=== PATIENT | female | born 1965 | race Caucasian/White ===

== ENCOUNTER 2016-08-05 11:43 | Day surgery (SDC) | payer OTHER ==
[2016-08-05] MEDS ORDERED: LACTATED RINGERS 1,000 ML ONE (11:47)
[2016-08-05] MEDS ORDERED: IV START KIT ONE (11:48)
[2016-08-05] MEDS ORDERED: ONDANSETRON 4 MG/2ML 2 ML VIAL IV PRN (12:02)
[2016-08-05] MEDS ORDERED: LIDOCAINE 1% 2 ML VIAL ID PRN (12:02)
[2016-08-05] MEDS ORDERED: LACTATED RINGERS 1,000 ML IV SCH (12:02)
== END 2016-08-05 13:30 | disposition home or self-care (01) ==
LOC: SDC 11:43
PROVIDERS: ATTEND Surgery
PROC: 0DJD8ZZ Inspection of Lower Intestinal Tract, Via Natural or Artificial Opening Endoscopic (ICD-10-PCS; principal; 2016-08-05)
DX: Z12.11 Encounter for screening for malignant neoplasm of colon (principal); K64.4 Residual hemorrhoidal skin tags; K58.9 Irritable bowel syndrome, unspecified; F32.9 Major depressive disorder, single episode, unspecified; F41.9 Anxiety disorder, unspecified
CPT/HCPCS: 45378; J7120